=== PATIENT | male | born 1950 | race Caucasian/White ===

== ENCOUNTER 2024-10-15 13:40 | Inpatient (IN) | payer MEDICARE, SELFPAY ==
[2024-10-15] VITALS (11 sets, daily range): BP systolic 137–172; BP diastolic 83–120; PULSE 79–99; RESP 16–22; TEMP 36.4–37; O2SAT 96–100; BMI 23.8; BMI 21.6
--- NOTE | 2024-10-15 13:45 | CT_ITS ---
STUDY: CT HEAD STROKE PROTOCOL W/O CONTRAST INJECTION REASON FOR EXAM: Male, 74 years old. Neuro deficit, acute, stroke suspected RADIATION DOSAGE (If Supplied By Facility): CTDIvol = ( 44.99 ) mGy, DLP = ( 779.24 ) mGycm TECHNIQUE: Transaxial CT imaging of the brain was performed without administration of intravenous contrast material. Individualized dose optimization techniques were used for this CT. COMPARISON: No relevant priors. FINDINGS: Normal soft tissue structures. Normal calvarium. There is mild cerebral atrophy with widening of the extra-axial spaces and ventricular dilatation. There are areas of decreased attenuation within the white matter tracts of the supratentorial brain, consistent with microvascular disease changes. There are small punctate calcifications of the basal ganglia which are seen in the aging brain as a normal variant. Normal brainstem. There is mild cerebellar atrophy. There is no intracranial hemorrhage. There are no findings of an acute ischemic infarction. Opacification of the right maxillary sinus. Partial opacification of the right ethmoid sinus and right frontal. Minimal mucosal thickening along the posterior aspect of the sphenoid sinus. ASPECT score: 10 CT/STROKE Brain/Head without Cont IMPRESSION: Chronic involutional changes of the brain. Sinusitis. N.B. : The above Results were Read Back by Nixon Morelos MD to Dr Kevin DO, and understanding confirmed on 10/15/2024 13:57:51 (ET). Electronically Signed: Nixon Morelos MD at 13:59 EST ,
--- NOTE | 2024-10-15 13:45 | CT_ITS ---
STUDY: CTA HEAD AND NECK WITH CONTRAST REASON FOR EXAM: Male, 74 years old. Neuro deficit, acute, stroke suspected RADIATION DOSAGE (If Supplied By Facility): CTDIvol = ( 27.49 ) mGy, DLP = ( 585.86 ) mGycm TECHNIQUE: CT angiography was performed with a multi-detector CT scanner. Data acquisition was obtained from the skull base through the vertex following intravenous administration of IV 100mL [id number]-[id number]. MIP images were reconstructed from the axial data set. Post-processing of the angiographic images was performed, with multiplanar reformation and 3D reconstruction. Individualized dose optimization techniques were used for this CT. COMPARISON: No relevant priors. FINDINGS: Normal bilateral petrous carotid arteries. There is calcified plaque formation of the right cavernous carotid artery, without a cross-sectional luminal stenosis. There is calcified plaque formation of the left cavernous carotid artery, without a cross-sectional luminal stenosis. Normal right A1 segments of the anterior cerebral artery. Normal left A1 segments of the anterior cerebral artery. Normal intact anterior communicating artery (ACOM). Normal bilateral A2 segments of the anterior cerebral arteries. Normal right M1 and M2 segments of the middle cerebral arteries, with a normal M1 bifurcation. Normal left M1 and M2 segments of the middle cerebral arteries, with a normal M1 bifurcation. Normal right posterior communicating artery (PCOM). Normal left posterior communicating artery (PCOM). Normal bilateral vertebral arteries. Normal basilar artery with a normal basilar bifurcation. The visualized bilateral superior cerebellar (SCA) arteries are normal. Normal bilateral P1, P2 and visualized P3 segments of the posterior cerebral arteries. There is no demonstrated aneurysm of the [place]. AORTIC ARCH: There is atherosclerotic calcific plaque formation of the aortic arch and great vessels arising from the aortic arch, without a hemodynamically significant stenosis. There is a normal origin of the brachiocephalic, left common carotid, and left subclavian arteries. RIGHT CAROTID ARTERIES: Normal right common carotid artery (CCA). Normal right common carotid bulb. There is mild atherosclerotic plaque formation of the origin of the right internal carotid artery with less than 50% cross sectional diameter stenosis. Normal visualized cervical portion of the right internal carotid artery. Normal origin of the right external carotid artery (ECA). LEFT CAROTID ARTERIES: Normal left common carotid artery (CCA). Normal left common carotid bulb. There is mild atherosclerotic plaque formation of the origin of the left internal carotid artery with less than 50% cross sectional diameter stenosis. Normal visualized cervical portion of the left internal carotid artery. Normal origin of the left external carotid artery (ECA). VERTEBRAL ARTERIES: Normal bilateral vertebral arteries. CT/STROKE CTA Head AND Neck W/Con IMPRESSION: Atherosclerotic plaque anteriorly in both right and left internal carotid arteries without significant stenosis. N.B. : The above Results were Read Back by Nixon Morelos MD to Dr Kevin DO, and understanding confirmed on 10/15/2024 14:05:33 (ET). Electronically Signed: Nixon Morelos MD at 14:06 EST ,
--- NOTE | 2024-10-15 13:45 | EKG12_ITS ---
Test Reason : STROKE Blood Pressure : */* mmHG Vent. Rate : 84 BPM Atrial Rate : * BPM P-R Int : * ms QRS Dur : 102 ms QT Int : 424 ms P-R-T Axes : * 86 12 degrees QTcB Int : 501 ms Atrial fibrillation Nonspecific ST abnormality Prolonged QT Abnormal ECG Confirmed by JUANI GUERRERO ([id number]), assignment desk editor [place] ([id number]) on 10/17/2024 12:01:18 PM Referred By: Confirmed By: JUANI GUERRERO
[2024-10-15 13:54] LABS: Absolute Lymphocyte Count 1.26 X10^3/uL (0.83-4.51); Absolute Neutrophil Count 4.1 X10^3/uL (2.0-7.7); Basophil# 0.04 X10^3/uL; Basophil% 0.6 % (0-1); Eosinophil# 0.14 X10^3/uL; Eosinophils% 2.1 % (0-5); Hematocrit 47.7 % (40-54); Hemoglobin 16.2 g/dL (13.0-16.5); Lymphocyte # 1.26 X10^3/ul (0.83-4.51); Lymphocyte % 19.2 % (19-41); Mean Corpuscular Hgb 32.2 pg (27.0-32.0); Mean Corpuscular Volume 94.8 fL (80-94); Mean Platelet Vol. 9.8 fl (6.2-12.0); Monocyte# 1.01 X10^3/uL; Monocyte% 15.4 % (0-10); NRBC Flagged by Analyzer 0 % (0-5); Neutrophil % 62.5 % (47-70); Platelet Count 279 K/mm3 (150-450); RBC Distribution Width SD 45.2 fl (35.1-43.9); Red Blood Count 5.03 M/mm3 (4.6-6.2); White Blood Count 6.6 K/mm3 (4.4-11.0)
[2024-10-15 14:15] LABS: International Normalized Ratio 1.8; Prothrombin Time (Protime)PT. 20.7 SECONDS (11.7-14.9)
[2024-10-15 14:16] LABS: Partial Thromboplast Time 31.5 Seconds (24.1-36.2)
[2024-10-15 14:24] LABS: Anion Gap 4 (5-15); BUN 16 mg/dL (7-18); Calcium,Total 9.3 mg/dL (8.5-10.1); Chloride 108 mmol/L (98-107); Creatinine, Serum 0.89 mg/dL (0.70-1.30); EST Glomerular Filtration Rate 88 mL/min (>60); Est Glom Filt Rate - Afr Amer 107 mL/min (>60); Estimated Creatinine Clearance 71.72 ml/min; Glucose 90 mg/dL (74-106); Potassium 4.2 mmol/L (3.5-5.1); Sodium Level 139 mmol/L (136-145); Troponin-I HS 8 pg/mL (3.0-78.0)
--- NOTE | 2024-10-15 14:28 | ED.RN ---
[facility] neurologist states if inr less than 1.7 give tnk. pt. inr 1.8
--- NOTE | 2024-10-15 14:31 | RAD_ITS ---
STUDY: X-RAY CHEST REASON FOR EXAM: Male, 74 years old. Neuro deficit, acute, stroke suspected TECHNIQUE: Single AP portable view of the chest. COMPARISON: None. FINDINGS: EKG electrodes are seen. The lungs are clear and expanded. There is no demonstrated pleural abnormality. Sternal cerclage wires and vascular clips are present from a prior sternotomy and coronary artery bypass graft procedure (CABG). Normal mediastinum and edelmira. There is prominence of the pulmonary hilar arteries without peripheral pulmonary vascular congestion, suggesting pulmonary hypertension. There is atherosclerotic calcification of the aortic arch with tortuosity. There are degenerative changes of the visualized thoracic spine. Normal visualized ribs, clavicles, and shoulders. There is no demonstrated abnormality of the visualized soft tissue structures of the upper abdomen. RAD/Chest 1 View IMPRESSION: Status post CABG. Prominence of the central pulmonary arteries. Electronically Signed: Nixon Morelos MD at 14:49 EST ,
--- NOTE | 2024-10-15 14:31 | ED.VIS.STROK ---
HPI History of Present Illness Chief Complaint: Stroke Alert Informant: patient, family and EMS Narrative Narrative: 74-year-old male history of mechanical falls on anticoagulation Coumadin with atrial fibrillation presenting to the emergency department as a prehospital stroke alert. Patient states he was shopping at the store when he felt something was not quite right. He noted his vision was off and his face did not seem correct. EMS was called who called prehospital stroke alert. Patient denies any arm or leg symptoms. PFSH PFSH Medical History (Updated 10/15/24 @ 15:[address] Osmar Brown DO) Splenic vein thrombosis A-fib Home Medications ?Medication ?Instructions ?Recorded ?Last Taken ?Type amlodipine 5 mg tablet (Norvasc) 5 mg PO DAILY 10/15/24 10/14/24 History ascorbic acid (vitamin C) 500 mg 500 mg PO DAILY 10/15/24 10/15/24 History tablet (Vitamin C) esomeprazole magnesium 20 mg 20 mg PO Q12H 10/15/24 10/15/24 History capsule,delayed release (Nexium) levothyroxine 50 mcg tablet 50 mcg PO DAILY 10/15/24 10/14/24 History (Synthroid) sotalol 240 mg tablet (Betapace) 240 mg PO BID 10/15/24 10/15/24 History warfarin 5 mg tablet 5 mg PO DAILY 10/15/24 10/15/24 History Allergy/AdvReac Type Severity Reaction Status Date / Time No Known Allergies Allergy Verified 10/15/24 14:45 Surgical History (Updated 10/15/24 @ 15:[address] Gloria Mccarthy DO) Status post mitral valve annuloplasty Social History Smoking Status: Never smoker ROS ROS ED Constitutional Constitutional ED: Denies chills, fever(s) or weight loss Eyes Eyes: Reports change in vision and diplopia; Denies blurry vision ENT ENT ED: Denies ear pain, rhinorrhea or sore throat Cardiovascular Cardiovascular: Denies chest pain, orthopnea, palpitations or racing heartbeat Respiratory/Chest Respiratory/Chest: Denies cough, dyspnea or orthopnea Gastrointestinal Gastrointestinal: Denies abdominal pain, diarrhea, nausea or vomiting Genitourinary Genitourinary ED: Denies dysuria, hematuria or urinary frequency Musculoskeletal Musculoskeletal: Denies arthralgias or myalgias Integumentary Denies abscess or rash Neurologic Neurologic: Reports weakness; Denies headache(s) Psychiatric Psychiatric: Denies anxiety, depression, suicidal ideation or suicidal thoughts Endocrine Endocrinology: Denies polydipsia, polyphagia or polyuria Allergic/Immunologic Allergic/Immunologic ED: Denies mouth swelling, tongue swelling or urticaria EXAM Physical Exam Const Vital Signs: 10/15/24 13:41 10/15/24 13:45 10/15/24 13:45 Temperature 97.8 F 97.8 F Temperature Source Temporal Oral Pulse Rate 90 90 Respiratory Rate 18 18 Blood Pressure 172/100 H 172/100 H Blood Pressure Mean 124 124 Pulse Ox 96 96 Oxygen Delivery Method Room Air Room Air Room Air 10/15/24 13:45 10/15/24 14:15 10/15/24 14:30 Temperature 97.8 F 97.8 F 97.8 F Temperature Source Temporal Temporal Temporal Pulse Rate 87 88 84 Respiratory Rate 22 H 18 18 Blood Pressure 163/86 H 149/89 H 155/98 H Blood Pressure Mean 111 109 117 Pulse Ox 99 98 99 Oxygen Delivery Method Room Air Room Air Room Air 10/15/24 14:41 10/15/24 15:02 10/15/24 15:04 Temperature 97.6 F L 98.6 F 97.8 F Temperature Source Temporal Oral Pulse Rate 97 88 99 Respiratory Rate 16 18 16 Blood Pressure 137/111 H 137/111 H Blood Pressure Mean 119 119 Pulse Ox 96 97 98 Oxygen Delivery Method Room Air Room Air Positive well nourished and well developed General Appearance ED: well developed and NAD HEENT Reports normocephalic, head/scalp atraumatic and moist mucous membranes Eyes PERRL Eyes Narrative: Patient's right eye is unable to look left. Patient continuously closes his left eye to improve his vision. Neck no lymphadenopathy, supple and no JVD Resp normal respiratory effort and clear to auscultation bilaterally Cardio regular rate, regular rhythm and no murmurs GI normal to inspection, nondistended, normoactive bowel sounds and non-tender Palpation: soft Back/Spine no CVA tenderness and normal ROM Extremity normal to inspection General Extremety ED: Negative for edema General Extremity: Negative for edema Neuro oriented x3 Neuro Narrative: Patient with facial droop noted. The patient denies any loss of vision in the eye. He keeps closing his left eye to improve his vision. He does have some [id number] difficulty but felt more related to his visual changes that corrects when he keeps his left eye closed. [place] Coma Scale: document GCS findings Spontaneous Obeys Commands Oriented 15 Sensorium / Orientation: alert Speech: Negative for speech normal Motor Exam: strength 5/5 throughout Psych mental status grossly normal Mood & Affect: Negative for depressed or tearful Skin no rashes or lesions noted and no wounds NIHSS NIHSS Initial: 1a Level of Consciousness: 0 1b LOC Questions (Score 2 if aphasic/stupor): 0 1c LOC Commands (Only score 1st attempt): 0 2 Best Gaze (If aphasic, use reflexive mvmts.): 2 3 Visual: 0 4 Facial Palsy: 2 5 Motor Arm Right (UN = amputation/fusion): 0 5 Motor Arm Left: 0 6 Motor Leg Right: 0 6 Motor Leg Left: 0 7 Limb ataxia (Only + if out of proportion): 0 8 Sensory (Aphasia/stupor=0 or 1, coma=2): 0 9 Best Language: 0 10 Dysarthria (mute, coma=2, intubated=UN): 1 11 Extinction and Inattention (only scored if +): 0 Total Score: 5 MDM MDM MDM Narrative Medical decision making narrative: Prehospital stroke alert. Patient was taken to CT scanner on the EMS cot. Initial head CT shows no bleed or dense sign. CTA does not demonstrate an LVO or distal LVO. Patient was assessed by [facility] neurology. His INR is 1.8. Recommendation would be for tPA if INR 1.7 and below. I spoke with neurologist directly regarding anticoagulation using heparin. They recommend heparinizing him without bolus and a repeat head CT in 6 hours. My independent interpretation of the chest x-ray is no acute process.White count 6.6 hemoglobin 16.2 platelet count 279 INR again 1.8 PTT 31.5. Troponin is 8 creatinine 0.89 BUN is 16. Plan is admission into hospital. Family arrived and the patient had not a mechanical mitral valve repair but annuloplasty. Therefore heparin drip was stopped. He is still not a tPA candidate given his INR of 1.8. Nursing notes that the speech is improved but the eye gaze has not. History & Record Review Discussion w/independent historian: EMS personnel, Patient and Family Lab Data Attestation: I reviewed the patient's lab results. Labs: Laboratory Results - last 24 hr 10/15/24 13:43 WBC 6.6 RBC 5.03 Hgb 16.2 Hct 47.7 MCV 94.8 H MCH 32.2 H MCHC 34.0 RDW Std Deviation 45.2 H RDW Coeff of Jerry 13.0 Plt Count 279 MPV 9.8 Immature Gran % (Auto) 0.200 Neut % (Auto) 62.5 Lymph % (Auto) 19.2 [place] % (Auto) 15.4 H Eos % (Auto) 2.1 Baso % (Auto) 0.6 Absolute Neuts (auto) 4.1 Absolute Lymphs (auto) 1.26 Nucleated RBC % 0 PT 20.7 H INR 1.8 APTT 31.5 Sodium 139 Potassium 4.2 Chloride 108 H Carbon Dioxide 28.0 Anion Gap 4 L BUN 16 Creatinine 0.89 Estim Creat Clear Calc 71.72 Est GFR (MDRD) Af Amer 107 Est GFR (MDRD) Non-Af 88 BUN/Creatinine Ratio 18.0 Glucose 90 Calcium 9.3 Troponin I High Sens 8 Radiography Diagnostic Testing: Clinical Impression(s) from Imaging Studies Brain CT 10/15/24 13:45 IMPRESSION: Chronic involutional changes of the brain. Sinusitis. N.B. : The above Results were Read Back by Nixon Morelos MD to Dr Kevin DO, and understanding confirmed on 10/15/2024 13:57:51 (ET). Electronically Signed: Nixon Morelos MD at 13:59 EST , ADDENDUM: 10/15/24 1405 IMPRESSION: Chronic involutional changes of the brain. Sinusitis. N.B. : The above Results were Read Back by Nixon Morelos MD to Dr Kevin DO, and understanding confirmed on 10/15/2024 13:57:51 (ET). Electronically Signed: Nixon Morelos MD at 13:59 EST , Head/Neck CTA 10/15/24 13:45 IMPRESSION: Atherosclerotic plaque anteriorly in both right and left internal carotid arteries without significant stenosis. N.B. : The above Results were Read Back by Nixon Morelos MD to Dr Kevin DO, and understanding confirmed on 10/15/2024 14:05:33 (ET). Electronically Signed: Nixon Morelos MD at 14:06 EST , ADDENDUM: 10/15/24 1413 IMPRESSION: Atherosclerotic plaque anteriorly in both right and left internal carotid arteries without significant stenosis. N.B. : The above Results were Read Back by Nixon Morelos MD to Dr Kevin DO, and understanding confirmed on 10/15/2024 14:05:33 (ET). Electronically Signed: Nixon Morelos MD at 14:06 EST , Chest X-Ray 10/15/24 14:31 IMPRESSION: Status post CABG. Prominence of the central pulmonary arteries. Electronically Signed: Nixon Morelos MD at 14:49 EST , EKG Initial EKG: Attestation: I personally reviewed and interpreted this EKG as follows: Comments: Atrial fibrillation with a ventricular rate of 84 bpm Management Discussion w/another healthcare provider: Hospitalist (Dr Mccarthy), [employer] ([facility]) and Radiologist (Dr. Morelos) Discharge Plan Dx/Rx/DC Orders Clinical Impression: Subtherapeutic international normalized ratio (INR), Acute stroke due to ischemia, Atrial fibrillation Disposition Disposition: Acute Care Hospital [facility]
--- NOTE | 2024-10-15 14:41 | HP.PCM.HOS_ITS ---
HPI - General General Date of Admission: 10/15/24 Date of Service: 10/15/24 Chief Complaint: Right-sided weakness/aphasia/slurred speech HPI Narrative ARIN HENRY, is a 74 M who presented to the emergency at [facility] on 10/15/2024 due to acute onset of right-sided weakness, aphasia, and slurred speech. Patient states he was his normal self up until about 1245 today at which time he experienced the above symptoms and came emergently to the hospital. Stroke team was called. Patient has a history mitral valve annuloplasty with annular ring placement but no mechanical mitral valve placement and is on anticoagulation with Coumadin due to history of the splenic vein thrombus and atrial fibrillation. His INR at the time of presentation was 1.8. NIH on presentation was 5. Case was discussed with [facility] neurology and they indicated that we should give tenecteplase if his INR was 1.7 or less. Unfortunately, his INR was 1.8 so therefore tenecteplase was held and request for admission was made. Initially we thought he was on Coumadin for mechanical mitral valve and the plan was going to be for heparin drip however in light of this not actually be a mechanical mitral valve the heparin was held and we will hold his Coumadin to avoid post stroke hemorrhagic transformation. Patient and family both indicate that his symptoms are better at this time than when he presented to the emergency department. They state his speech is still not correct. Patient keeps his left eye closed stating that he is diplopia. On exam he has the inability to abduct his right eye. Vital signs on presentation showed temperature of 97.8, heart rate 90, respiratory rate is 18, blood pressure 172/100 with a pulse ox of 96% on room air. CBC is overtly unremarkable. INR is 1.8. Chemistry panel is unremarkable. Troponin is 8. Hemoglobin A1c is 5.5. CT of the brain shows chronic involutional changes with opacification of the right maxillary sinus and partial opacification of the right ethmoid sinus and right frontal sinus which appear to be chronic. CTA of the head and neck showed atherosclerotic anteriorly both in the left and right internal carotid arteries without significant stenosis. Estimated stenosis is less than 50% on bilateral carotid arteries. [facility] Medical History (Updated 10/15/24 @ 16:[address] Gloria Mccarthy DO) GERD (gastroesophageal reflux disease) Hypothyroidism Essential hypertension Mitral valve insufficiency Splenic vein thrombosis A-fib Home Medications ?Medication ?Instructions ?Recorded ?Last Taken ?Type amlodipine 5 mg tablet (Norvasc) 5 mg PO DAILY 10/15/24 10/14/24 History ascorbic acid (vitamin C) 500 mg 500 mg PO DAILY 10/15/24 10/15/24 History tablet (Vitamin C) esomeprazole magnesium 20 mg 20 mg PO Q12H 10/15/24 10/15/24 History capsule,delayed release (Nexium) levothyroxine 50 mcg tablet 50 mcg PO DAILY thyroid 10/15/24 10/15/24 History (Synthroid) sotalol 240 mg tablet (Betapace) 240 mg PO BID 10/15/24 10/15/24 History warfarin 5 mg tablet 5 mg PO DAILY blood thinner 10/15/24 10/14/24 History Allergy/AdvReac Type Severity Reaction Status Date / Time No Known Allergies Allergy Verified 10/15/24 14:45 Family History (Updated 10/15/24 @ 16:[address] Gloria Mccarthy DO) Other Hypertension Surgical History Status post mitral valve annuloplasty Social History (Updated 10/15/24 @ 16:[address] Gloria cMcarthy DO) household members: spouse housing: house Smoking Status: Never smoker alcohol intake: never substance use type: does not use ROS Constitutional Constitutional: Reports weakness; Denies anorexia, change in weight, chills, fatigue, fever(s), malaise, night sweats or other Eyes Eyes: Reports change in vision; Denies blurry vision, change in eye color, discharge from eye(s), double vision, erythema, eye pain, loss of vision or other ENT HEENT: Reports abnormal hearing; Denies dysphagia, ear pain, epistaxis, headache(s), hearing loss, nasal congestion, nasal discharge, post nasal drip, sinus pressure, sore throat or other Cardiovascular Cardiovascular: Denies chest pain, claudication, dyspnea on exertion, edema, lightheadedness, orthopnea, palpitations, paroxysmal nocturnal dyspnea, rapid heart rate, syncope or other Respiratory/Chest Respiratory/Chest: Denies cough, dyspnea, excessive phlegm production, hemoptysis, productive cough, shortness of breath at rest, shortness of breath with exertion, wheezing or other Gastrointestinal Gastrointestinal: Denies abdominal pain, coffee ground emesis, constipation, diarrhea, dyspepsia, hematemesis, hematochezia, loose stools, melena, nausea, vomiting or other Genitourinary Genitourinary: Denies burning urination, difficulty urinating, dysuria, hematuria, nocturia, urinary frequency, urinary hesitancy, urinary incontinence, urinary urgency or other Musculoskeletal Musculoskeletal: Denies arthralgias, back pain, joint pain, joint stiffness, joint swelling, myalgias, neck pain or other Neurologic Neurologic: Reports abnormal speech, focal weakness and other Details: Diplopia Psychiatric Psychiatric: Denies anxiety, depression, homicidal ideation, suicidal ideation or other Endocrine Endocrinology: Denies change in body appearance, cold intolerance, excessive sweating, heat intolerance, polydipsia, polyuria or other Hematologic/Lymphatic Hematologic/Lymphatic: Denies anemia, easy bleeding, easy bruising, lymphadenopathy or other Allergic/Immunologic Allergic/Immunologic: Denies rhinitis, hives, eczemia, asthma or other Vital Signs Vital Signs Vital Signs: 10/15/24 13:41 10/15/24 13:45 10/15/24 13:45 Temperature 97.8 F 97.8 F Temperature Source Temporal Oral Pulse Rate 90 90 Respiratory Rate 18 18 Blood Pressure 172/100 H 172/100 H Blood Pressure Mean 124 124 Pulse Ox 96 96 Oxygen Delivery Method Room Air Room Air Room Air 10/15/24 13:45 10/15/24 14:15 10/15/24 14:30 Temperature 97.8 F 97.8 F 97.8 F Temperature Source Temporal Temporal Temporal Pulse Rate 87 88 84 Respiratory Rate 22 H 18 18 Blood Pressure 163/86 H 149/89 H 155/98 H Blood Pressure Mean 111 109 117 Pulse Ox 99 98 99 Oxygen Delivery Method Room Air Room Air Room Air Weight Weight: 73 kg Body Mass Index (BMI) 23.8 Physical Exam Const alert, oriented x3, no apparent distress and well nourished Constitutional Narrative: Very pleasant, older, white male, sitting up in a chair at the bedside, appears comfortable, nontoxic, and son at bedside General Appearance: cooperative HEENT normocephalic, head/scalp atraumatic and moist oral mucous membranes; Negative for hearing grossly normal bilaterally HEENT Narrative: Moderate hearing loss Eyes PERRL and conjunctivae normal; Negative for EOMs intact bilaterally Eyes Narrative: Right eye with no abduction Neck no lymphadenopathy and supple Neck Narrative: Trachea midline, no carotid bruits bilaterally, no thyroid enlargement noted Resp normal respiratory effort, no retractions, no use of accessory muscles and clear to auscultation bilaterally Auscultation: Negative for rales, rhonchi or wheezes Cardio regular rate, S1 normal heart sound, S2 normal heart sound, no murmurs, no rub, no gallops and no clicks; Negative for regular rhythm Cardio Narrative: Irregularly irregular rhythm GI normal to inspection, nondistended, normoactive bowel sounds, soft to palpation and non-tender Extremity no clubbing, cyanosis or edema Extremity Narrative: 2+ radial and pedal pulses Neuro oriented x3, No CN's II-XII intact bilaterally, moves all extremities and no focal motor deficits Neuro Narrative: Patient with left facial droop, abnormal cranial nerve III on the right eye as he has inability to cross midline with medial rectus, all other cranial nerves appear to be within normal limits, patient with dysarthria Speech: Negative for speech normal Psych affect normal Psych Narrative: Very pleasant, appears comfortable Results Lab / Micro Data 10/15/24 13:43 10/15/24 13:43 Labs: Laboratory Results - last 24 hr 10/15/24 13:43: WBC 6.6, RBC 5.03, Hgb 16.2, Hct 47.7, MCV 94.8 H, MCH 32.2 H, MCHC 34.0, RDW Std Deviation 45.2 H, RDW Coeff of Jerry 13.0, Plt Count 279, MPV 9.8, Immature Gran % (Auto) 0.200, Neut % (Auto) 62.5, Lymph % (Auto) 19.2, [place] % (Auto) 15.4 H, Eos % (Auto) 2.1, Baso % (Auto) 0.6, Absolute Neuts (auto) 4.1, Absolute Lymphs (auto) 1.26, Nucleated RBC % 0, PT 20.7 H, INR 1.8, APTT 31.5, Sodium 139, Potassium 4.2, Chloride 108 H, Carbon Dioxide 28.0, Anion Gap 4 L, BUN 16, Creatinine 0.89, Estim Creat Clear Calc 71.72, Est GFR (MDRD) Af Amer 107, Est GFR (MDRD) Non-Af 88, BUN/Creatinine Ratio 18.0, Glucose 90, Calcium 9.3, Troponin I High Sens 8 Imaging Radiology Impression Brain CT 10/15/24 13:45 IMPRESSION: Chronic involutional changes of the brain. Sinusitis. N.B. : The above Results were Read Back by Nixon Morelos MD to Dr Kevin DO, and understanding confirmed on 10/15/2024 13:57:51 (ET). Electronically Signed: Nixon Morelos MD at 13:59 EST , ADDENDUM: 10/15/24 1405 IMPRESSION: Chronic involutional changes of the brain. Sinusitis. N.B. : The above Results were Read Back by Nixon Morelos MD to Dr Kevin DO, and understanding confirmed on 10/15/2024 13:57:51 (ET). Electronically Signed: Nixon Morelos MD at 13:59 EST , Head/Neck CTA 10/15/24 13:45 IMPRESSION: Atherosclerotic plaque anteriorly in both right and left internal carotid arteries without significant stenosis. N.B. : The above Results were Read Back by Nixon Morelos MD to Dr Kevin DO, and understanding confirmed on 10/15/2024 14:05:33 (ET). Electronically Signed: Nixon Morelos MD at 14:06 EST , ADDENDUM: 10/15/24 1413 IMPRESSION: Atherosclerotic plaque anteriorly in both right and left internal carotid arteries without significant stenosis. N.B. : The above Results were Read Back by Nixon Morelos MD to Dr North English , DO, and understanding confirmed on 10/15/2024 14:05:33 (ET). Electronically Signed: Nixon Morelos MD at 14:06 EST , Assessment & Plan Assessment/Plan (1) Right sided weakness: (2) Slurred speech: (3) Subtherapeutic international normalized ratio (INR): (4) Dysarthria: PLAN: Plan Right-sided weakness/dysarthria/slurred speech -Highly suspect cardioembolic stroke with subtherapeutic INR and persistent atrial fibrillation -Will hold anticoagulation for now to avoid hemorrhagic transformation -Initially was thought patient has a mechanical mitral valve which she does not--> history of annuloplasty with annular ring -Takes Coumadin at baseline for atrial fibrillation and history of splenic vein thrombus -Check hemoglobin A1c -Check lipid panel -Start high intensity dose statin -Hold home antihypertensive regimen for now and allow for permissive hypertension to facilitate improved perfusion -Ultimately goal blood pressure be less than 130/80 -Start aspirin 81 mg daily -Check MRI -Check echocardiogram -Consult neurology Subtherapeutic INR -INR on presentation was 1.8 with goal and INR 2-3 -Coumadin currently on hold due to above suspected stroke -If MRI negative restart Coumadin -Repeat INR when Coumadin reinitiated Persistent atrial fibrillation -EKG shows atrial fibrillation with good rate control -Patient is on sotalol at baseline--> continue -QTc is mildly prolonged at 502 -Hold Coumadin for now to avoid hemorrhagic transformation with stroke -Suspect current stroke is cardioembolic with subtherapeutic INR on presentation Hypothyroidism -Continue home levothyroxine GERD -Continue home PPI Essential hypertension -Continue home amlodipine History of splenic thrombus -Coumadin on hold due to the above -Restart when appropriate History of mitral valve disease -Previous annuloplasty with annular ring -No mechanical mitral valve present -Echocardiogram is pending -Continue outpatient follow-up DVT prophylaxis -Subcu Lovenox daily 40 mg -Continue Lovenox until INR is therapeutic again at 2-3 or patient is able to be discharged CODE STATUS -Full code as verified on admission Charges/Coding Visit Charges Inpatient E&M: 77971 Init Hosp L2
--- NOTE | 2024-10-15 15:16 | ECHOD_ITS ---
Reason For Study: TIA/STROKE Procedure This was a 2D Doppler, Color Flow transthoracic echocardiogram. Exam performed portable in patient room. Left Ventricle Normal LV size. Moderate concentric left ventricular hypertrophy. The estimated ejection fraction is 55 %. Unable to assess diastolic dysfunction due to arrhythmia. Right Ventricle Normal RV size. Normal systolic function. Atria The left atrium is moderately enlarged. The right atrium is moderately enlarged. Bubble contrast study negative for right to left interatrial shunt. Mitral Valve Severe mitral annular calcification. The mitral valve chordae are thickened and/or calcified. Mild diffuse mitral valve calcification. Mild mitral valve stenosis. Mean transmitral valve gradient 5.6 mmHg. Mild (1+) mitral valve insufficiency. Tricuspid Valve Normal tricuspid valve. Mild (1+) tricuspid valve insufficiency. Unable to estimate RV systolic pressure due to insufficient tricuspid regurgitant envelope. Aortic Valve Trisinus/trileaflet aortic valve. Mild focal aortic valve calcification. There is no aortic stenosis. Mild (1+) aortic valve insufficiency. Pulmonic Valve Normal pulmonic valve. Great Vessels Normal aortic root. Pericardium/Pleural No pericardial effusion. Medication Performed a rapid injection of agitated mix of 9 cc saline and 1cc air to assess for atrial septal defect. MMode/2D Measurements & Calculations LVIDd: 4.0 cm IVSd: 1.5 cm LAV(MOD-bp): 107.9 ml LVIDs: 3.2 cm LVPWd: 1.2 cm RVDd: 3.8 cm FS: 20.3 % LAV(MOD-bp) Indexed: 57.3 ml/m2 LAV(MOD-sp2): 125.8 ml LAV(MOD-sp4): 95.2 ml SV(MOD-sp4): 11.9 ml SV(sp4-el): 14.7 ml LVAd ap4: 17.3 cm2 LVLd ap4: 7.9 cm SI(MOD-sp4): 6.3 ml/m2 EDV(MOD-sp4): 31.9 ml EDV(sp4-el): 32.1 ml LVAs ap4: 12.4 cm2 LVLs ap4: 7.5 cm ESV(MOD-sp4): 20.1 ml ESV(sp4-el): 17.4 ml EF(MOD-sp4): 37.2 % EF(sp4-el): 45.8 % LA A4 area: 29.3 cm2 RA A4 area: 33.1 cm2 Doppler Measurements & Calculations MV E max venkata: 173.6 cm/sec Lat Peak E' Venkata: 6.7 cm/sec Med Peak E' Venkata: 3.2 cm/sec E/E' lat: 25.9 E/E' med: 54.2 MV V2 max: 178.2 cm/sec MV P1/2t max venkata: 175.0 cm/sec Ao V2 max: 129.7 cm/sec MV max P.7 mmHg MV P1/2t: 197.7 msec Ao max P.9 mmHg MV V2 mean: 110.7 cm/sec MV dec slope: 259.3 cm/sec2 Ao V2 mean: 66.5 cm/sec MV mean P.6 mmHg MVA(P1/2t): 1.1 cm2 Ao mean P.2 mmHg MV V2 VTI: 64.0 cm Ao V2 VTI: 18.3 cm AV (velocity ratio): 0.71 LV V1 max: 70.8 cm/sec PA V2 max: 75.2 cm/sec LV V1 max P.0 mmHg LV V1 mean P.1 mmHg LV V1 mean: 49.3 cm/sec LV V1 VTI: 13.1 cm ECHO/Echo Complete Interpretation Summary The estimated ejection fraction is 55 %. Unable to assess diastolic dysfunction due to arrhythmia. The left atrium is moderately enlarged. The right atrium is moderately enlarged. Severe mitral annular calcification. Mild mitral valve stenosis. Mild (1+) mitral valve insufficiency. Mild (1+) tricuspid valve insufficiency. Mild focal aortic valve calcification. Mild (1+) aortic valve insufficiency. Bubble contrast study negative for right to left interatrial shunt. Ordering Physician: Gloria Mccarthy Referring Physician: RILEY SWARTZ Performed By: Krupa Marquis and Student
--- NOTE | 2024-10-15 15:16 | MRI_ITS ---
STUDY: MRI BRAIN WITHOUT CONTRAST REASON FOR EXAM: Male, 74 years old. Stroke TECHNIQUE: Standardized multiplanar fat and water weighted pulse sequences were obtained. COMPARISON: CT. FINDINGS: There is mild cerebral atrophy with widening of the extra-axial spaces and ventricular dilatation. There are a limited number of small white matter hyperintensities, distributed throughout the deep white matter tracts of the cerebral hemispheres, consistent with mild chronic white matter ischemic changes. There is no evidence for recent intracranial ischemia or other cause of cytotoxic edema on diffusion weighted imaging (DWI). Normal T2* images of the brain without demonstrated susceptibility artifact. There is no demonstrated hemosiderin stain. Normal bilateral basal ganglia. Normal thalami. There is no extra-axial fluid accumulation. Normal flow voids within the major intracranial circulation suggesting patency by spin echo criteria. Normal sella turcica, pituitary gland, infundibular stalk, optic chiasm and hypothalamus. Normal tectal plate and pineal gland. Normal midbrain, rosie and medulla. There is left cerebellar volume loss and encephalomalacia. Normal basal cisterns. Normal bilateral temporal bones. Normal bilateral internal auditory canals. No demonstrated orbital abnormality, within the constraints of a routine brain study. There is moderate mucosal thickening of the visualized paranasal sinuses. Normal calvarium and skull base. Normal visualized soft tissue structures. Normal visualized upper cervical spine. MRI/Brain without Contrast IMPRESSION: Involutional changes of the brain, as described above. Electronically Signed: Boom Frias MD at 18:19 EST ,
[2024-10-15 16:18] LABS: Hemoglobin A1c 5.5 % (3.8-5.6)
[2024-10-15] MEDS: Aspirin 81 MG TAB.CHEW PO (16:27)
[2024-10-15] MEDS: Ensure Plus High Protein 120 ML LIQUID PO ×2 (16:27→22:14)
[2024-10-15] MEDS: Sotalol Hydrochloride 80 MG Tablet 240 MG PO (22:11)
[2024-10-15] MEDS: Pantoprazole Sodium 20 MG Tablet PO (22:11)
[2024-10-15] MEDS: Atorvastatin Calcium 80 MG Tablet PO (22:12)
[2024-10-15] MEDS: 0.9% Saline Lock 10 ML Syringe IV (22:14)
[2024-10-16 01:52] VITALS: BP 159/91; PULSE 74; RESP 16; TEMP 36.6; O2SAT 98
[2024-10-16 04:33] VITALS: BMI 21.6
[2024-10-16] MEDS: Levothyroxine 50 MCG Tablet PO (05:51)
[2024-10-16] MEDS: Acetaminophen 325 MG Tablet 650 MG PO (05:51)
[2024-10-16 05:55] VITALS: BP 154/98; PULSE 81; RESP 18; TEMP 36.6; O2SAT 98
[2024-10-16 06:16] LABS: Absolute Lymphocyte Count 1.05 X10^3/uL (0.83-4.51); Absolute Neutrophil Count 5.5 X10^3/uL (2.0-7.7); Basophil# 0.05 X10^3/uL; Basophil% 0.6 % (0-1); Eosinophil# 0.13 X10^3/uL; Eosinophils% 1.7 % (0-5); Hematocrit 46.3 % (40-54); Lymphocyte # 1.05 X10^3/ul (0.83-4.51); Lymphocyte % 13.4 % (19-41); Mean Corp Hgb Conc 34.6 g/dL (32-36); Mean Corpuscular Hgb 32.1 pg (27.0-32.0); Mean Corpuscular Volume 92.8 fL (80-94); Mean Platelet Vol. 9.6 fl (6.2-12.0); Monocyte# 1.11 X10^3/uL; Monocyte% 14.1 % (0-10); NRBC Flagged by Analyzer 0 % (0-5); Neutrophil # 5.49 X10^3/uL (2.7-7.7); Neutrophil % 69.9 % (47-70); Platelet Count 249 K/mm3 (150-450); RBC Distribution Width CV 12.7 % (11.6-14.6); RBC Distribution Width SD 43.4 fl (35.1-43.9); Red Blood Count 4.99 M/mm3 (4.6-6.2); White Blood Count 7.9 K/mm3 (4.4-11.0)
[2024-10-16 06:53] LABS: ALB/GLOB Ratio 1.1 RATIO (0.9-2.4); AST(SGOT) 22 U/L (15-37); Alanine Aminotransfer ALT/SGPT 19 U/L (16-61); Albumin, Serum 3.9 g/dL (3.2-5.0); Alkaline Phosphatase 83 U/L (45-117); Anion Gap 8 (5-15); BUN 12 mg/dL (7-18); BUN/Creat Ratio 16.8 RATIO (10-20); Calcium,Total 9.5 mg/dL (8.5-10.1); Chloride 107 mmol/L (98-107); Cholesterol 188 mg/dL (200); Creatinine, Serum 0.71 mg/dL (0.70-1.30); EST Glomerular Filtration Rate 114 mL/min (>60); Est Glom Filt Rate - Afr Amer 138 mL/min (>60); Estimated Creatinine Clearance 73.91 ml/min; Globulin 3.7 g/dL (2.2-4.2); Glucose 111 mg/dL (74-106); High Density Lipoprotein 54 mg/dL; Magnesium 2.1 mg/dL (1.6-2.6); Phosphorus 3.1 mg/dL (2.5-4.9); Potassium 3.9 mmol/L (3.5-5.1); Protein, Total 7.6 g/dL (6.4-8.2); Sodium Level 139 mmol/L (136-145); Triglycerides 120 mg/dL; Very Low Density Lipoprotein 24 mg/dL (5-40)
[2024-10-16 07:50] VITALS: O2SAT 96
--- NOTE | 2024-10-16 08:01 | PN.HOSP_ITS ---
Reason for Visit Reason for Visit: Diagnoses Dysarthria and anarthria (10/15/24) Slurred speech (10/15/24) Weakness (10/15/24) Abnormal coagulation profile (10/15/24) Subjective Subjective Still with diplopia and left facial droop and slurred speech. Objective Data Objective Data Vital Signs: Vital Signs Temp Pulse Resp BP Pulse Ox O2 Del Method 36.6 C 81 18 154/98 H 98 Room Air 10/16/24 05:55 10/16/24 05:55 10/16/24 05:55 10/16/24 05:55 10/16/24 05:55 10/16/24 05:55 Oxygen Delivery Method Room Air Weight: 65.5 kg Body Mass Index (BMI) 21.6 Intake & Output: Intake and Output for Last 24 Hours 10/14/24 10/15/24 10/16/24 23:59 23:59 23:59 Intake Total 240 / 480 390 / 390 Output Total 350 / 1000 1250 / 1250 Balance -110 / -520 -860 / -860 Lab / Micro Data 10/16/24 05:51 10/16/24 05:51 Labs: Laboratory Results - last 24 hr 10/15/24 13:43: WBC 6.6, RBC 5.03, Hgb 16.2, Hct 47.7, MCV 94.8 H, MCH 32.2 H, MCHC 34.0, RDW Std Deviation 45.2 H, RDW Coeff of Jerry 13.0, Plt Count 279, MPV 9.8, Immature Gran % (Auto) 0.200, Neut % (Auto) 62.5, Lymph % (Auto) 19.2, [place] % (Auto) 15.4 H, Eos % (Auto) 2.1, Baso % (Auto) 0.6, Absolute Neuts (auto) 4.1, Absolute Lymphs (auto) 1.26, Nucleated RBC % 0, PT 20.7 H, INR 1.8, APTT 31.5, Sodium 139, Potassium 4.2, Chloride 108 H, Carbon Dioxide 28.0, Anion Gap 4 L, BUN 16, Creatinine 0.89, Estim Creat Clear Calc 71.72, Est GFR (MDRD) Af Amer 107, Est GFR (MDRD) Non-Af 88, BUN/Creatinine Ratio 18.0, Glucose 90, Hemoglobin A1c 5.5, Calcium 9.3, Troponin I High Sens 8 10/16/24 05:51: WBC 7.9, RBC 4.99, Hgb 16.0, Hct 46.3, MCV 92.8, MCH 32.1 H, MCHC 34.6, RDW Std Deviation 43.4, RDW Coeff of Jerry 12.7, Plt Count 249, MPV 9.6, Immature Gran % (Auto) 0.300, Neut % (Auto) 69.9, Lymph % (Auto) 13.4 L, M david % (Auto) 14.1 H, Eos % (Auto) 1.7, Baso % (Auto) 0.6, Absolute Neuts (auto) 5.5, Absolute Lymphs (auto) 1.05, Nucleated RBC % 0, Sodium 139, Potassium 3.9, Chloride 107, Carbon Dioxide 25.0, Anion Gap 8, BUN 12, Creatinine 0.71, Estim Creat Clear Calc 73.91, Est GFR (MDRD) Af Amer 138, Est GFR (MDRD) Non-Af 114, BUN/Creatinine Ratio 16.8, Glucose 111 H, Calcium 9.5, Phosphorus 3.1, Magnesium 2.1, Total Bilirubin 0.80, AST 22, ALT 19, Alkaline Phosphatase 83, Total Protein 7.6, Albumin 3.9, Globulin 3.7, Albumin/Globulin Ratio 1.1, Triglycerides 120, Cholesterol 188, LDL Cholesterol 110, VLDL Cholesterol 24, HDL Cholesterol 54 Radiography Diagnostic Testing: Radiology Impression Brain CT 10/15/24 13:45 IMPRESSION: Chronic involutional changes of the brain. Sinusitis. N.B. : The above Results were Read Back by Nixon Morelos MD to Dr Kevin DO, and understanding confirmed on 10/15/2024 13:57:51 (ET). Electronically Signed: Nixon Morelos MD at 13:59 EST , ADDENDUM: 10/15/24 8821 IMPRESSION: Chronic involutional changes of the brain. Sinusitis. N.B. : The above Results were Read Back by Nixon Morelos MD to Dr Kevin DO, and understanding confirmed on 10/15/2024 13:57:51 (ET). Electronically Signed: Nixon Morelos MD at 13:59 EST , Head/Neck CTA 10/15/24 13:45 IMPRESSION: Atherosclerotic plaque anteriorly in both right and left internal carotid arteries without significant stenosis. N.B. : The above Results were Read Back by Nixon Morelos MD to Dr Kevin DO, and understanding confirmed on 10/15/2024 14:05:33 (ET). Electronically Signed: Nixon Morelos MD at 14:06 EST , ADDENDUM: 10/15/24 1413 IMPRESSION: Atherosclerotic plaque anteriorly in both right and left internal carotid arteries without significant stenosis. N.B. : The above Results were Read Back by Nixon Morelos MD to Dr Kevin DO, and understanding confirmed on 10/15/2024 14:05:33 (ET). Electronically Signed: Nixon Morelos MD at 14:06 EST , Chest X-Ray 10/15/24 14:31 IMPRESSION: Status post CABG. Prominence of the central pulmonary arteries. Electronically Signed: Nixon Morelos MD at 14:49 EST , Brain MRI 10/15/24 15:16 IMPRESSION: Involutional changes of the brain, as described above. Electronically Signed: Boom Frias MD at 18:19 EST , Physical Exam Const alert Constitutional Narrative: tearful at times. slurred speech. HEENT HEENT Narrative: limited right movement in any direction. WNL on left. left facial droop. Resp normal respiratory effort, no retractions, no use of accessory muscles and clear to auscultation bilaterally Cardio regular rate, regular rhythm, S1 normal heart sound and S2 normal heart sound GI normal to inspection, nondistended, normoactive bowel sounds, soft to palpation, non-tender and non-distended Extremity normal to inspection and full ROM Neuro oriented x3 Neuro Narrative: ataxia on LUE. Psych Mood & Affect: anxious Assessment & Plan Assessment/Plan (1) Right sided weakness: (2) Slurred speech: (3) Subtherapeutic international normalized ratio (INR): (4) Dysarthria: PLAN: Plan Acute CVA * MRI brain negative. Dr. 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 He recommends restarting anticoagulation. Given pt's history of mitral valvular issues, will resume warfarin. * check echo * PT OT ST * Atorvastatin 80mg/d Chronic conditions: * Persistent atrial fibrillation continue Sotalol * Hypothyroidism-Continue home levothyroxine * GERD-Continue home PPI * Essential hypertension-Continue home amlodipine * History of splenic thrombus-resume warfarin * History of mitral valve disease-Previous annuloplasty with annular ring-No mechanical mitral valve present-Echocardiogram is pending-Continue outpatient follow-up DVT prophylaxis: Subcu Lovenox daily 40 mg Discussed with the patient, his and son. Reviewed MRI report and images with them Explained that clinically, is a CVA. Recommended rehab if deemed appropriate by therapy services. Greater than 55 minutes of which greater than 50% of time was at bedside discussing with the patient, his family, reveiwing imaging and discussing my impression of his clinical situation. Charges/Coding Visit Charges Inpatient E&M: 27040 Subs Hosp L3
[2024-10-16 10:00] VITALS: BP 152/97; PULSE 71; RESP 18; TEMP 36.5; O2SAT 97
[2024-10-16] MEDS: Ensure Plus High Protein 120 ML LIQUID PO ×2 (10:04→13:04)
[2024-10-16] MEDS: Enoxaparin 40 MG/0.4 ML Syringe SC (10:04)
[2024-10-16] MEDS: Pantoprazole Sodium 20 MG Tablet PO (10:04)
[2024-10-16] MEDS: Sotalol Hydrochloride 80 MG Tablet 240 MG PO (10:04)
[2024-10-16] MEDS: Ascorbic Acid 500 MG Tablet PO (10:04)
--- NOTE | 2024-10-16 13:38 | STROKE.CONS ---
Assessment and Plan: Stroke Assessment/Plan ARIN HENRY is a 74 M with a history of AF who presents for evaluation of acute onset diplopia, dysarthria and left sided sensory changes. Neurological examination shows a likely right 3rd nerve palsy Neuroimaging shows no clear acute infarct, but possible subtle DWI changes in rula dorsal midbrain which may represent a small infarct with volume averaging. Differential No historical evidence to support differential alternatives such as myasthenia gravis, or a demylinating process which would be consideratations but are less likely given the very clear history of a sudden onset. - Oral anticoagulation is the most important step for stroke prevention in AF. Optimally would transition to apixaban given his low INR, apixaban's greater average efficacy and its lower risks than warfarin. If possible, would try to check his likely co-pay and, if affordable, transition him. If not, would restart warfarin. - In either case, ok to start oral anticoagulation today as his infarct is quite small. 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 - Discussed the generally positive recovery trajectory after ischemic stroke, but also the uncertainty in that prognosis - Agree with speech, PT and OT evaluations. - No other tests needed for workup given his known AF and clear indication for anticoagulation. 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 HPI Consult Data Date of Consult: 10/16/24 HPI Narrative HPI Narrative: ARIN HENRY, is a 74 M who presents with the sudden onset of dysarthria, diplopia and left sided sensory symptoms. He notes that he was at the store with his and when he left for a couple minutes to pickup an electric scooter for her, he returned with double vision, and severe dysarthria as well as subtle left face and arm sensory symptoms. On presentation to the ED, he has a NIHSS of 1 and an INR of 1.8 and was thus not a candidate for thrombolysis. His left sided symptoms have improved somewhat, but his diplopia and dysarthria have persisted and been relatively unchanged. He has long-standing AF and has been stable on warfarin with INRs mostly between 2-3. [facility] Medical History (Updated 10/15/24 @ 16:[address] Gloria Mccarthy DO) GERD (gastroesophageal reflux disease) Hypothyroidism Essential hypertension Mitral valve insufficiency Splenic vein thrombosis A-fib Home Medications ?Medication ?Instructions ?Recorded ?Last Taken ?Type amlodipine 5 mg tablet (Norvasc) 5 mg PO DAILY 10/15/24 10/14/24 History ascorbic acid (vitamin C) 500 mg 500 mg PO DAILY 10/15/24 10/15/24 History tablet (Vitamin C) esomeprazole magnesium 20 mg 20 mg PO Q12H 10/15/24 10/15/24 History capsule,delayed release (Nexium) levothyroxine 50 mcg tablet 50 mcg PO DAILY thyroid 10/15/24 10/15/24 History (Synthroid) sotalol 240 mg tablet (Betapace) 240 mg PO BID 10/15/24 10/15/24 History warfarin 5 mg tablet 5 mg PO DAILY blood thinner 10/15/24 10/14/24 History Allergy/AdvReac Type Severity Reaction Status Date / Time No Known Allergies Allergy Verified 10/15/24 14:45 Family History (Updated 10/15/24 @ 16:[address] Gloria Mccarthy DO) Other Hypertension Surgical History Status post mitral valve annuloplasty Social History (Updated 10/15/24 @ 16:[address] Gloria Mccarthy DO) household members: spouse housing: house Smoking Status: Never smoker alcohol intake: never substance use type: does not use Vital Signs Vital Signs Vital Signs: 10/15/24 13:41 10/15/24 13:45 10/15/24 13:45 Temperature 97.8 F 97.8 F Temperature Source Temporal Oral Pulse Rate 90 90 Pulse Strength Respiratory Rate 18 18 Respiratory Effort Respiratory Depth Respiratory Pattern Blood Pressure 172/100 H 172/100 H Blood Pressure Mean 124 124 Blood Pressure Source Blood Pressure Position Blood Pressure Location Pulse Ox 96 96 Oxygen Delivery Method Room Air Room Air Room Air 10/15/24 13:45 10/15/24 14:15 10/15/24 14:30 Temperature 97.8 F 97.8 F 97.8 F Temperature Source Temporal Temporal Temporal Pulse Rate 87 88 84 Pulse Strength Respiratory Rate 22 H 18 18 Respiratory Effort Respiratory Depth Respiratory Pattern Blood Pressure 163/86 H 149/89 H 155/98 H Blood Pressure Mean 111 109 117 Blood Pressure Source Blood Pressure Position Blood Pressure Location Pulse Ox 99 98 99 Oxygen Delivery Method Room Air Room Air Room Air 10/15/24 14:41 10/15/24 15:02 10/15/24 15:04 Temperature 97.6 F L 98.6 F 97.8 F Temperature Source Temporal Oral Pulse Rate 97 88 99 Pulse Strength Respiratory Rate 16 18 16 Respiratory Effort Respiratory Depth Respiratory Pattern Blood Pressure 137/111 H 137/111 H Blood Pressure Mean 119 119 Blood Pressure Source Blood Pressure Position Blood Pressure Location Pulse Ox 96 97 98 Oxygen Delivery Method Room Air Room Air 10/15/24 15:52 10/15/24 16:00 10/15/24 16:05 Temperature 98.1 F Temperature Source Oral Pulse Rate 96 Pulse Strength Respiratory Rate 18 Respiratory Effort Respiratory Depth Respiratory Pattern Blood Pressure 168/120 H Blood Pressure Mean 136 Blood Pressure Source Monitor Blood Pressure Position Semi-Fowlers Blood Pressure Location Right Arm Pulse Ox 98 Oxygen Delivery Method Room Air Room Air Room Air 10/15/24 19:50 10/15/24 21:00 10/15/24 21:55 Temperature 98 F 98 F Temperature Source Oral Oral Pulse Rate 82 79 Pulse Strength Respiratory Rate 18 18 Respiratory Effort Respiratory Depth Respiratory Pattern Blood Pressure 149/83 H 148/84 H Blood Pressure Mean 105 105 Blood Pressure Source Monitor Monitor Blood Pressure Position Semi-Fowlers Semi-Fowlers Blood Pressure Location Right Arm Right Arm Pulse Ox 100 96 96 Oxygen Delivery Method Room Air Room Air Room Air 10/15/24 22:00 10/16/24 01:52 10/16/24 02:00 Temperature 97.9 F Temperature Source Oral Pulse Rate 74 Pulse Strength Respiratory Rate 16 Respiratory Effort Normal Normal Respiratory Depth Normal Normal Respiratory Pattern Normal Normal Blood Pressure 159/91 H Blood Pressure Mean 113 Blood Pressure Source Monitor Blood Pressure Position Semi-Fowlers Blood Pressure Location Right Arm Pulse Ox 98 Oxygen Delivery Method Room Air Room Air Room Air 10/16/24 05:55 10/16/24 07:50 10/16/24 08:00 Temperature 97.8 F Temperature Source Oral Pulse Rate 81 Pulse Strength Normal (2+) Respiratory Rate 18 Respiratory Effort Respiratory Depth Respiratory Pattern Blood Pressure 154/98 H Blood Pressure Mean 116 Blood Pressure Source Monitor Blood Pressure Position Semi-Fowlers Blood Pressure Location Right Arm Pulse Ox 98 96 Oxygen Delivery Method Room Air Room Air 10/16/24 10:00 Temperature 97.7 F L Temperature Source Oral Pulse Rate 71 Pulse Strength Respiratory Rate 18 Respiratory Effort Respiratory Depth Respiratory Pattern Blood Pressure 152/97 H Blood Pressure Mean 115 Blood Pressure Source Monitor Blood Pressure Position Semi-Fowlers Blood Pressure Location Right Arm Pulse Ox 97 Oxygen Delivery Method Room Air Weight Weight: 65.5 kg Body Mass Index (BMI) 21.6 NIHSS NIHSS Nursing Documentation NIHSS Nursing Documentation: NIHSS: Ischemic Stroke/TIA Start: 10/15/24 15:40 Text: For PCU Patients: NIH and Neuro Check every 4 Status: Active hours, PRN and with change in RN caregiver. Freq: [id number] Protocol: Activity Type Activity Date Activity User E-sign Co-sign Detail Recorded Client Recorded Date Recorded By Document 10/16/24 10:00 AMG desktop 10/16/24 10:19 AMG 10/16/24 10:00 NIH Stroke Scale [NIHSS] A score of 0 is normal or asymptomatic . Total possible score is 42. Inpatient: RN or Physician to activate a stroke alert for onset of new stroke symptoms or with NIHSS increase >/= 3 points. Following change in neurological status, NIHSS will be performed per physician order or more frequently PRN. -1a. Level of Consciousness Alert; keenly responsive -1b. LOC Questions Answers BOTH questions correctly. -1c. LOC Commands Performs both tasks correctly . -2. Best Gaze Partial gaze palsy; -3. Visual Partial hemianopia -4. Facial Palsy Normal symmetrical movements -5a. Left Arm No drift; arm holds 90 (or 45 ) degrees for full 10 seconds -5b. Right Arm No drift; arm holds 90 (or 45 ) degrees for full 10 seconds -6a. Left Leg No drift; leg holds 30-degree position for full 5 seconds -6b. Right Leg No drift; leg holds 30-degree position for full 5 seconds -7. Limb Ataxia Present in 1 limb -8. Sensory Mild-to- moderate sensory loss; -9. Best Language Mild-to- moderate aphasia; -10. Dysarthria Mild-to- moderate dysarthria; -11. Extinction and Inattention No abnormality -Total 6 Query Text:A score of 0 is normal or asymptomatic. Total possible score is 42 . ED: Notify Physician for NIHSS increase by > / = 3 points. Inpatient: RN or Physician to activate a stroke alert for NIHSS increase of > / = 3 points. Coma Scale [Assess] -Eye Opening Spontaneous -Motor Obeys Commands -Verbal Oriented [Total] -Coma Scale Total 15 NIHSS 1a. Level of Consciousness: Alert; keenly responsive 1b. LOC Questions: Answers BOTH questions correctly. 1c. LOC Commands: Performs both tasks correctly. 2. Best Gaze: Partial gaze palsy; 3. Visual: No visual loss 4. Facial Palsy: Normal symmetrical movements 5a. Left Arm: No drift; arm holds 90 (or 45) degrees for full 10 seconds 5b. Right Arm: No drift; arm holds 90 (or 45) degrees for full 10 seconds 6a. Left Leg: No drift; leg holds 30-degree position for full 5 seconds 6b. Right Leg: No drift; leg holds 30-degree position for full 5 seconds 7. Limb Ataxia: Absent 8. Sensory: Normal; no sensory loss 9. Best Language: No aphasia; normal 10. Dysarthria: Severe dysarthria; 11. Extinction and Inattention: No abnormality Total: 3 Physical Exam Narrative Apparently compelte left 3rd nerve palsy on exam Lab / Micro Data 10/16/24 05:51 10/16/24 05:51 Labs: Laboratory Results - last 24 hr 10/15/24 13:43: WBC 6.6, RBC 5.03, Hgb 16.2, Hct 47.7, MCV 94.8 H, MCH 32.2 H, MCHC 34.0, RDW Std Deviation 45.2 H, RDW Coeff of Jerry 13.0, Plt Count 279, MPV 9.8, Immature Gran % (Auto) 0.200, Neut % (Auto) 62.5, Lymph % (Auto) 19.2, Whiteside % (Auto) 15.4 H, Eos % (Auto) 2.1, Baso % (Auto) 0.6, Absolute Neuts (auto) 4.1, Absolute Lymphs (auto) 1.26, Nucleated RBC % 0, PT 20.7 H, INR 1.8, APTT 31.5, Sodium 139, Potassium 4.2, Chloride 108 H, Carbon Dioxide 28.0, Anion Gap 4 L, BUN 16, Creatinine 0.89, Estim Creat Clear Calc 71.72, Est GFR (MDRD) Af Amer 107, Est GFR (MDRD) Non-Af 88, BUN/Creatinine Ratio 18.0, Glucose 90, Hemoglobin A1c 5.5, Calcium 9.3, Troponin I High Sens 8 10/16/24 05:51: WBC 7.9, RBC 4.99, Hgb 16.0, Hct 46.3, MCV 92.8, MCH 32.1 H, MCHC 34.6, RDW Std Deviation 43.4, RDW Coeff of Jerry 12.7, Plt Count 249, MPV 9.6, Immature Gran % (Auto) 0.300, Neut % (Auto) 69.9, Lymph % (Auto) 13.4 L, Whiteside % (Auto) 14.1 H, Eos % (Auto) 1.7, Baso % (Auto) 0.6, Absolute Neuts (auto) 5.5, Absolute Lymphs (auto) 1.05, Nucleated RBC % 0, Sodium 139, Potassium 3.9, Chloride 107, Carbon Dioxide 25.0, Anion Gap 8, BUN 12, Creatinine 0.71, Estim Creat Clear Calc 73.91, Est GFR (MDRD) Af Amer 138, Est GFR (MDRD) Non-Af 114, BUN/Creatinine Ratio 16.8, Glucose 111 H, Calcium 9.5, Phosphorus 3.1, Magnesium 2.1, Total Bilirubin 0.80, AST 22, ALT 19, Alkaline Phosphatase 83, Total Protein 7.6, Albumin 3.9, Globulin 3.7, Albumin/Globulin Ratio 1.1, Triglycerides 120, Cholesterol 188, LDL Cholesterol 110, VLDL Cholesterol 24, HDL Cholesterol 54 Imaging Radiology Impression Brain CT 10/15/24 13:45 IMPRESSION: Chronic involutional changes of the brain. Sinusitis. N.B. : The above Results were Read Back by iNxon Morelos MD to Dr Kevin DO, and understanding confirmed on 10/15/2024 13:57:51 (ET). Electronically Signed: Nixon Morelos MD at 13:59 EST , ADDENDUM: 10/15/24 8995 IMPRESSION: Chronic involutional changes of the brain. Sinusitis. N.B. : The above Results were Read Back by Nixon Morelos MD to Dr Kevin DO, and understanding confirmed on 10/15/2024 13:57:51 (ET). Electronically Signed: Nixon Morelos MD at 13:59 EST , Head/Neck CTA 10/15/24 13:45 IMPRESSION: Atherosclerotic plaque anteriorly in both right and left internal carotid arteries without significant stenosis. N.B. : The above Results were Read Back by Nixon Morelos MD to Dr Kevin DO, and understanding confirmed on 10/15/2024 14:05:33 (ET). Electronically Signed: Nixon Morelos MD at 14:06 EST , ADDENDUM: 10/15/24 1413 IMPRESSION: Atherosclerotic plaque anteriorly in both right and left internal carotid arteries without significant stenosis. N.B. : The above Results were Read Back by Nixon Morelos MD to Dr Kevin DO, and understanding confirmed on 10/15/2024 14:05:33 (ET). Electronically Signed: Nixon Morelos MD at 14:06 EST , Chest X-Ray 10/15/24 14:31 IMPRESSION: Status post CABG. Prominence of the central pulmonary arteries. Electronically Signed: Nixon Morelos MD at 14:49 EST , Brain MRI 10/15/24 15:16 IMPRESSION: Involutional changes of the brain, as described above. Electronically Signed: Boom Frias MD at 18:19 EST , Active Medications Active Medications Active Medications: Current Medications Generic Name Dose Route Start Last Admin Trade Name Freq PRN Reason Stop Dose Admin Acetaminophen 650 mg 10/15/24 15:40 10/16/24 05:51 Acetaminophen 325 Mg Tablet PO 650 mg Q4H PRN PRN Administration Pain 1-10 Or Fever>99.6 Ascorbic Acid 500 mg 10/16/24 10:00 10/16/24 10:04 Ascorbic Acid 500 Mg Tablet PO 500 mg DAILY ANGEL Administration Atorvastatin Calcium 80 mg 10/15/24 22:00 10/15/24 22:12 Atorvastatin Calcium 80 Mg Tablet PO 80 mg QHS ANGEL Administration Enoxaparin Sodium 40 mg 10/16/24 10:00 10/16/24 10:04 Enoxaparin 40 Mg/0.4 Ml Syringe SC 40 mg DAILY ANGEL Administration Hydralazine HCl 5 mg 10/15/24 15:40 Hydralazine 20 Mg/Ml Vial IV 10/16/24 15:40 Q30M PRN maintain BP parameters with HR <60 Sodium Chloride 500 mls @ 15 mls/hr 10/15/24 15:42 IV .[id number] PRN Saline Flush Sodium Chloride 500 mls @ 15 mls/hr 10/15/24 15:42 IV .[id number] PRN Additional IVPB Infusion Labetalol HCl 10 - 20 mg 10/15/24 15:40 Labetalol (Prefilled) 20 Mg/4 Ml Vial IV 10/16/24 15:40 Q10M PRN PRN maintain BP parameters with HR >/=60 Levothyroxine Sodium 50 mcg 10/16/24 06:00 10/16/24 05:51 Levothyroxine 50 Mcg Tablet PO 50 mcg DAILY@0600 ANGEL Administration Nutritional Formula (Lactose Free) 120 ml 10/15/24 18:00 10/16/24 13:04 Ensure Plus High Protein 120 Ml Liquid PO 120 ml 4X/DAY ANGEL Administration Ondansetron HCl 4 mg 10/15/24 15:40 Ondansetron 4 Mg/2 Ml Vial IV Q8H PRN PRN NAUSEA/VOMITING Pantoprazole Sodium 20 mg 10/15/24 22:00 10/16/24 10:04 Pantoprazole Sodium 20 Mg Tablet PO 20 mg Q12 ANGEL Administration Senna/Docusate Sodium 2 tablet 10/15/24 15:40 Senna/Docusate Sodium 1 Tablet PO BID PRN PRN Constipation Sodium Chloride 10 - 40 ml 10/15/24 15:42 10/15/24 22:14 0.9% Saline Lock 10 Ml Syringe IV 20 ml UD PRN Administration SALINE FLUSH Sotalol HCl 240 mg 10/15/24 22:00 10/16/24 10:04 Sotalol Hydrochloride 80 Mg Tablet PO 240 mg BID ANGEL Administration
[2024-10-16 14:00] VITALS: BP 143/85; PULSE 70; RESP 18; TEMP 36.7; O2SAT 95
--- NOTE | 2024-10-16 14:06 | CASEMGMT ---
Discharge Planning A list of?RU providers including quality and resource use data and consistent with the patient's preferred geographic region, medical needs, and insurance network was created in [facility]Port Guide.? This list was provided to the RN PONCHO. Irene Everett, Discharge Planning Asst.
--- NOTE | 2024-10-16 14:30 | CASEMGMT ---
ALTAGRACIA ISAAC Face to Face with patient for initial transition planning/care coordination assessment. ALTAGRACIA ISAAC introduced self and role at [facility]. Patient sitting in chair, alert and oriented, at bedside. Patient having difficulty speaking, willing to participate in assessment and is able to answer all questions appropriately. Care providers, pharmacy, and demographics verified. Strata:1 PCP: [facility] Specialists: Keyur Thakur, Pastrycook Yue CCZuleika Preferred Pharmacy: [facility] Insurance: [facility] Prescription Benefit: yes Living Will/HPOA: yes, son Jhonatan Loza LNOK: , son Living Arrangements: Patient lives with in a 2 story home with stair lift to the second floor, 2 steps and railing to enter the home. Patient was independent at home. Transportation: self, son DME/HHC: Patient has shower chair, raised toilet, and grab bars at home. No previous HHC or SNF RN PONCHO reviewed therapy recommendations or Acute Rehab at discharge, list provided. Patient and state they would prefer [facility] Acute Rehab. Patient and state they have no further needs or concerns at this time. ALTAGRACIA ISAAC updated SW regarding request for [facility] Rehab. SW had inquired about bed availability earlier, no bed available at this time. ALTAGRACIA ISAAC back in to updated patient and , next preference with [facility]. ALTAGRACIA ISAAC updated discharge materials planning analyst to sent referral. CM to follow for discharge planning needs that may arise. Disposition Plan: [facility] pending acceptance and precert. Krystal ARCOS, RN, CM
--- NOTE | 2024-10-16 15:04 | CASEMGMT ---
Addendum entered by Irene Everett 10/17/24 09:56: [facility]. Requested that precert be started and to send wknd phone/fax numbers. Irene Everett DC Planning Asst. Original Note: Discharge Planning Referral sent via [facility] to [facility]. Irene Everett DC Planning Asst.
--- NOTE | 2024-10-16 16:47 | NURSING ---
Attempted to give po ativan. Patient refuses.
[2024-10-16 17:00] VITALS: BMI 21.6
[2024-10-16] MEDS: 0.9% Saline Lock 10 ML Syringe IV ×2 (17:08→17:51)
[2024-10-16] MEDS: LORazepam 2 MG/ML Syringe 0.5 MG IV (17:08)
--- NOTE | 2024-10-16 17:44 | CT_ITS ---
INDICATION: agitation EXAMINATION: CT BRAIN - CT Head or Brain W/O Contrast Injection TECHNIQUE: Multiple axial images were obtained of the head without intravenous contrast. The protocol utilizes one or more of the following dose reduction techniques: automated exposure control, adjustment of mA and/or kV according to patient size,and/or use of iterative reconstruction technique. IV Contrast dosage and agent: None. RADIATION DOSAGE (If Supplied By Facility): CTDIvol = ( 44.99 ) mGy, DLP = ( 846.73 ) mGycm COMPARISON: October 15, 2024 FINDINGS: BRAIN PARENCHYMA: No intra- or extra-axial hemorrhage. No evidence of acute infarct. No intracranial mass or mass effect. There is preservation of the stone/white matter interface. Posterior fossa structures are unremarkable. CSF SPACES: Appropriate for age. No hydrocephalus. Basal cisterns are patent. CALVARIUM, SKULL BASE, PARANASAL SINUSES AND MASTOID AIR CELLS: There is stable opacification of the right frontal, right ethmoid and right maxillary sinuses consistent with a history of sinusitis. No discrete lytic or blastic abnormalities. ORBITS: Both globes, extraocular muscles, optic nerves and retrobulbar fat appear unremarkable. CT/Brain/Head without Contrast IMPRESSION: Stable examination demonstrating no acute intracranial process. Electronically Signed: Thu Perkins MD at 20:51 EST ,
[2024-10-16] MEDS: LORazepam 2 MG/ML Syringe 1 MG IV ×2 (17:50→20:19)
--- NOTE | 2024-10-16 18:00 | NURSING ---
NIHSS and vitals not completed at this time due to extreme agitation and being combative with staff
[2024-10-16 20:38] VITALS: BP 133/99; PULSE 92; RESP 16; TEMP 37.1; O2SAT 96
--- NOTE | 2024-10-16 23:23 | PCM.HOSP.N ---
Hospitalist Note I was called by [employer] and informed this patient was becoming increasingly restless and agitated in spite of prn Ativan. He could not be treated with IM Vistaril or IM Haldol due to potential adverse drug reaction with Sotalol so after one additional dose of IV Ativan was given his agitation recurred after ~2.5 hours so the decision was made to move him to the ICU where he could be better managed with Precedex drip.
[2024-10-17] VITALS (26 sets, daily range): BP systolic 85–140; BP diastolic 61–106; PULSE 55–84; RESP 12–22; TEMP 35.9–36.5; O2SAT 94–100; BMI 21.6; BMI 22.4
[2024-10-17] MEDS: dexMEDEtomidine 400 MCG in 0.9% Normal Saline (100mL Bag) 96 ML 8.2 MCG CONT INF (00:16)
[2024-10-17 03:51] LABS: International Normalized Ratio 1.3; Prothrombin Time (Protime)PT. 16.1 SECONDS (11.7-14.9)
--- NOTE | 2024-10-17 07:15 | PN.HOSP_ITS ---
Reason for Visit Reason for Visit: Diagnoses Dysarthria and anarthria (10/15/24) Slurred speech (10/15/24) Weakness (10/15/24) Abnormal coagulation profile (10/15/24) Subjective Subjective Was very agitated yesterday despite several doses of lorazaepam. Had to be transferred to ICU and was initiated on a dexmedetomidine gtt. Objective Data Objective Data Vital Signs: Vital Signs Temp Pulse Resp BP Pulse Ox O2 Del Method O2 Flow Rate 35.9 C L 68 13 119/82 H 98 Nasal Cannula 2 10/17/24 04:00 10/17/24 07:00 10/17/24 07:00 10/17/24 07:00 10/17/24 07:00 10/17/24 07:00 10/17/24 07:00 Oxygen Flow Rate (L/min) 2 Oxygen Delivery Method Nasal Cannula Weight: 68 kg Body Mass Index (BMI) 22.4 Intake & Output: Intake and Output for Last 24 Hours 10/15/24 10/16/24 10/17/24 23:59 23:59 23:59 Intake Total 240 / 480 870 / 870 42.63 / 42.63 Output Total 350 / 1000 1250 / 1250 Balance -110 / -520 -380 / -380 42.63 / 42.63 Lab / Micro Data 10/16/24 05:51 10/16/24 05:51 Labs: Laboratory Results - last 24 hr 10/17/24 03:30: PT 16.1 H, INR 1.3 Radiography Diagnostic Testing: Radiology Impression Echocardiogram 10/15/24 15:16 Interpretation Summary The estimated ejection fraction is 55 %. Unable to assess diastolic dysfunction due to arrhythmia. The left atrium is moderately enlarged. The right atrium is moderately enlarged. Severe mitral annular calcification. Mild mitral valve stenosis. Mild (1+) mitral valve insufficiency. Mild (1+) tricuspid valve insufficiency. Mild focal aortic valve calcification. Mild (1+) aortic valve insufficiency. Bubble contrast study negative for right to left interatrial shunt. Ordering Physician: Gloria Mccarthy Referring Physician: RILEY SWARTZ Performed By: Krupa Marquis and Student Brain CT 10/16/24 17:44 IMPRESSION: Stable examination demonstrating no acute intracranial process. Electronically Signed: Thu Perkins MD at 20:51 EST , Physical Exam Const Constitutional Narrative: somnolent. afebrile HEENT head/scalp atraumatic and moist oral mucous membranes Resp normal respiratory effort and no retractions GI normal to inspection, nondistended, normoactive bowel sounds, soft to palpation and non-tender Assessment & Plan Assessment/Plan (1) CVA (cerebral vascular accident): PLAN: Acute CVA * MRI brain negative. Dr. 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 He recommends restarting anticoagulation. Given pt's history of mitral valvular issues, will resume warfarin. Follow up CT was negative. * Echo shows an EF of 55%. Left atrium moderately enlarged, right atrium moderately enlarged. * PT OT ST * Atorvastatin 80mg/d (2) Agitation: PLAN: Severe where he was attempting to hit other. Did not respond to lorazepam. Give his sotalol; haloperidol, quetiapine, etc.; could not be given Transferred to ICU and started on dexmedetomidine gtt Prior to this, he was very tearful Likely a culmination of the CVA, insomnia, anxiety. PLAN: Plan Chronic conditions: * Persistent atrial fibrillation continue Sotalol and warfarin * Hypothyroidism-Continue home levothyroxine * GERD-Continue home PPI * Essential hypertension-Continue home amlodipine * History of splenic thrombus-resume warfarin * History of mitral valve disease-Previous annuloplasty with annular ring-No mechanical mitral valve present-Echocardiogram is pending-Continue outpatient follow-up DVT prophylaxis: Subcu Lovenox daily 40 mg Greater than 55 minutes of which greater than 50% of time discussed with the patient's and son. Discussed with them in great detail about though the MRI was negative and this is most likely a stroke and also reiterated neurology's recommendations. Also discussed about the modalities of the confusion as is likely multifactorial due to myriad events. Anticipate the patient would actually be better, from an anxiety perspective, after he is off the Precedex drip. Also informed him that there is not a clear indication for DOACs and valvular atrial fibrillation. Recommend continue with warfarin for now. They are both in agreement. Disposition: [facility] the [facility] to [facility]hab when medically stable. Charges/Coding Visit Charges Inpatient E&M: 06457 Subs Hosp L3
--- NOTE | 2024-10-17 10:06 | CASEMGMT ---
Social Work Pt has been accepted at [facility]. Precert has been started today. Pt's behaviors will need to be stabilized and precert will need to be obtained prior to discharge. Green sheet on the chart to facilitate weekend discharge if the these two criteria are met. KASHIF Santos
[2024-10-17] MEDS: Enoxaparin 40 MG/0.4 ML Syringe SC (11:06)
--- NOTE | 2024-10-17 12:06 | CASEMGMT ---
Discharge Planning Maykel Davila has obtained auth to admit. Levi placed in chart. SW updated. Irene Everett DC Planning Asst.
[2024-10-17] MEDS: amLODIPine 5 MG Tablet PO (13:35)
[2024-10-17] MEDS: Pantoprazole Sodium 20 MG Tablet PO ×2 (13:35→20:42)
[2024-10-17] MEDS: Sotalol Hydrochloride 80 MG Tablet 240 MG PO ×2 (13:35→20:40)
[2024-10-17] MEDS: Ascorbic Acid 500 MG Tablet PO (13:35)
[2024-10-17] MEDS: Ensure Plus High Protein 120 ML LIQUID PO ×3 (13:48→20:40)
[2024-10-17] MEDS: Atorvastatin Calcium 80 MG Tablet PO (20:42)
[2024-10-18] VITALS (12 sets, daily range): BP systolic 93–148; BP diastolic 64–99; PULSE 65–80; RESP 14–18; TEMP 36–36.3; O2SAT 91–100; BMI 22.8
[2024-10-18] MEDS: Levothyroxine 50 MCG Tablet PO (05:17)
--- NOTE | 2024-10-18 07:10 | PCM.PN.HOSP ---
Reason for Visit Reason for Visit: Diagnoses Cerebral infarction, unspecified (10/15/24) Restlessness and agitation (10/15/24) Dysarthria and anarthria (10/15/24) Slurred speech (10/15/24) Weakness (10/15/24) Abnormal coagulation profile (10/15/24) Subjective Subjective More alert. Still with difficulty speaking. Objective Data Objective Data Vital Signs: Vital Signs Temp Pulse Resp BP Pulse Ox O2 Del Method O2 Flow Rate 36.0 C L 71 17 130/83 H 94 Room Air 2 10/18/24 04:00 10/18/24 07:00 10/18/24 07:00 10/18/24 07:00 10/18/24 07:00 10/18/24 07:00 10/17/24 23:00 Oxygen Flow Rate (L/min) 2 Oxygen Delivery Method Room Air Weight: 69 kg Body Mass Index (BMI) 22.8 Intake & Output: Intake and Output for Last 24 Hours 10/16/24 10/17/24 10/18/24 23:59 23:59 23:59 Intake Total 870 / 870 271.11 / 271.11 Output Total 1250 / 1250 100 / 100 400 / 400 Balance -380 / -380 171.11 / 171.11 -400 / -400 Lab / Micro Data 10/16/24 05:51 10/16/24 05:51 Physical Exam Const alert and no apparent distress HEENT head/scalp atraumatic and moist oral mucous membranes Eyes Eyes Narrative: right eye down and out. ptosis right eyelid. Resp normal respiratory effort, no retractions, no use of accessory muscles and clear to auscultation bilaterally Cardio regular rate, regular rhythm, S1 normal heart sound and S2 normal heart sound GI normal to inspection, nondistended, normoactive bowel sounds, soft to palpation and non-tender Assessment & Plan Assessment/Plan (1) CVA (cerebral vascular accident): PLAN: Acute CVA with left sided weakness and Right cranial nerve palsy. MRI brain negative. Dr. 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 He recommends restarting anticoagulation. Given pt's history of mitral valvular issues, will resume warfarin. Follow up CT was negative. Echo shows an EF of 55%. Left atrium moderately enlarged, right atrium moderately enlarged. PT OT ST Atorvastatin 80mg/d Advised patching left eye when in bed and up in chair and then patching right eye when he is up working with therapy (2) Agitation: PLAN: Resolved. Severe where he was attempting to hit other. Did not respond to lorazepam. Give his sotalol; haloperidol, quetiapine, etc.; could not be given Transferred to ICU and started on dexmedetomidine gtt Prior to this, he was very tearful Likely a culmination of the CVA, insomnia, anxiety. PLAN: Plan Chronic conditions: Persistent atrial fibrillation continue Sotalol and warfarin Hypothyroidism-Continue home levothyroxine GERD-Continue home PPI Essential hypertension-Continue home amlodipine History of splenic thrombus-resume warfarin History of mitral valve disease-Previous annuloplasty with annular ring-No mechanical mitral valve present-Echocardiogram is pending-Continue outpatient follow-up DVT prophylaxis: Subcu Lovenox daily 40 mg Greater than 55 minutes of which greater than 50% of time discussed with the patient's and son. Discussed with them in great detail about though the MRI was negative and this is most likely a stroke and also reiterated neurology's recommendations. Also discussed about the modalities of the confusion as is likely multifactorial due to myriad events. Anticipate the patient would actually be better, from an anxiety perspective, after he is off the Precedex drip. Also informed him that there is not a clear indication for DOACs and valvular atrial fibrillation. Recommend continue with warfarin for now. They are both in agreement. [facility]
[2024-10-18 07:44] LABS: International Normalized Ratio 1.2; Prothrombin Time (Protime)PT. 15.3 SECONDS (11.7-14.9)
[2024-10-18] MEDS: Sotalol Hydrochloride 80 MG Tablet 240 MG PO (08:24)
[2024-10-18] MEDS: Pantoprazole Sodium 20 MG Tablet PO (08:25)
[2024-10-18] MEDS: amLODIPine 5 MG Tablet PO (08:25)
[2024-10-18] MEDS: Ascorbic Acid 500 MG Tablet PO (08:25)
[2024-10-18] MEDS: Enoxaparin 40 MG/0.4 ML Syringe SC (08:26)
--- NOTE | 2024-10-18 09:30 | CASEMGMT ---
Social Work Pt completed PHQ-9 w/SW, scored a 6. Pt showing some signs of depression, that seem directly correlated with his current medical condition. Pt's speaking has been impacted and pt was able to express that this is difficult for him. Support offered. Pt is to be going to rehab today, pt seems in agreement with going to rehab to work on his speech in particular. No further social service needs anticipated at this time. DI Lea
--- NOTE | 2024-10-18 10:04 | DS.PCM_ITS ---
Providers Date of Admission: 10/15/24 Primary Care Physician: Dr. Letitia Wei, DO Consultations 10/15/24 15:40 Consult: Tele-Neurology Routine Consulting Provider: [facility] Reason for Consult: Acute Ischemic Stroke/TIA EMERGENT Consult: No MD Notified: Yes Date Notified: 10/15/24 Time Notified: 16:11 Method of Notification: Answering Service Nursing Unit Staff Notify [facility] of Tele-Neurology Consult: Yes Reason For Visit: SUSPECTED STROKE Diagnosis Discharge Diagnosis (1) CVA (cerebral vascular accident): Status: Acute Code(s): I63.9 - Cerebral infarction, unspecified Plan: Acute CVA with left sided weakness and Right cranial nerve palsy. * MRI brain negative. Dr. 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 He recommends restarting anticoagulation. Given pt's history of mitral valvular issues, will resume warfarin. Follow up CT was negative. * Echo shows an EF of 55%. Left atrium moderately enlarged, right atrium moderately enlarged. * PT OT ST * Atorvastatin 80mg/d * Advised patching left eye when in bed and up in chair and then patching right eye when he is up working with therapy (2) Agitation: Status: Acute Code(s): R45.1 - Restlessness and agitation Plan: Resolved. Severe where he was attempting to hit other. Did not respond to lorazepam. Give his sotalol; haloperidol, quetiapine, etc.; could not be given Transferred to ICU and started on dexmedetomidine gtt Prior to this, he was very tearful Likely a culmination of the CVA, insomnia, anxiety. Plan Chronic conditions: * Persistent atrial fibrillation continue Sotalol and warfarin * Hypothyroidism-Continue home levothyroxine * GERD-Continue home PPI * Essential hypertension-Continue home amlodipine * History of splenic thrombus-resume warfarin * History of mitral valve disease-Previous annuloplasty with annular ring-No mechanical mitral valve present-Echocardiogram is pending-Continue outpatient follow-up DVT prophylaxis: Subcu Lovenox daily 40 mg Greater than 55 minutes of which greater than 50% of time discussed with the patient's and son. Discussed with them in great detail about though the MRI was negative and this is most likely a stroke and also reiterated neurology's recommendations. Also discussed about the modalities of the confusion as is likely multifactorial due to myriad events. Anticipate the patient would actually be better, from an anxiety perspective, after he is off the Precedex drip. Also informed him that there is not a clear indication for DOACs and valvular atrial fibrillation. Recommend continue with warfarin for now. They are both in agreement. [facility] Medications at Discharge Home Medications amlodipine 5 mg tablet (Norvasc) 5 mg PO DAILY 10/15/24 ascorbic acid (vitamin C) 500 mg tablet (Vitamin C) 500 mg PO DAILY 10/15/24 esomeprazole magnesium 20 mg capsule,delayed release (Nexium) 20 mg PO Q12H 10/15/24 levothyroxine 50 mcg tablet (Synthroid) 50 mcg PO DAILY thyroid 10/15/24 sotalol 240 mg tablet (Betapace) 240 mg PO BID 10/15/24 warfarin 5 mg tablet 5 mg PO DAILY blood thinner 10/15/24 atorvastatin 80 mg tablet 80 mg PO QHS #0 tabs 10/18/24 food supplemt, lactose-reduced 0.08 gram-1.5 kcal/mL oral liquid (Ensure Plus High Protein) 120 ml PO 4X/DAY #0 mL 10/18/24 Hospital Course Operations None Procedures 2-D Echocardiogram Summary of Care Provided Minutes Spent on Discharge: 40 Hospital Course: Is a 74-year-old male presented with acute onset of left-sided weakness, dizziness, diplopia. Patient underwent stroke workup as he had left-sided weakness as well as cranial nerve III palsy on his right. His MRI imaging did not show any stroke but clinically, patient had a stroke and combine by the fact that he has known atrial fibrillation on warfarin. Patient was seen by neurology from [facility] who felt the patient did indeed have a brainstem stroke though the MRI did not convincingly show that. Recommendation is continue with his warfarin therapy. Preferably we would like for him to be on apixaban but he unfortunate does have valvular A-fib and would require warfarin for further management. Suspected that his stroke was embolic from his atrial fibrillation whether or not it was from being subtherapeutic or happened irregardless is unclear. Patient's hospitalization was compounded by severe agitation. Patient was inconsolable, being confrontational with his family and staff which according his family is out of the norm for him. Is felt that that was likely multifactorial as patient is been very emotionally labile since his stroke And but also compounded by the stroke itself and that diagnosis and the long-term implications of such. Along with probably insomnia as patient had not been sleeping well before. He did require being placed on dexmedetomidine drip. That was discontinued on the and today patient is much better. He is still having profound dysarthria and still does have the ptosis on his right eye with his right eye being down and out. To help strengthen his eye, patient will be advised to patch his left eye when he is in bed and sitting in a chair, however, with activity would recommend him patching the right eye to prevent diplopia and having his left eye being able to navigate his positions and so forth. Patient will be discharged to rehab in stable condition. Weight / BMI Weight Weight: 69 kg Body Mass Index (BMI) 22.8 ABG / Lab / Microbiology Data 10/16/24 05:51 10/16/24 05:51 Laboratory: Laboratory Results - last 24 hr 10/18/24 07:20: PT 15.3 H, INR 1.2 D/C Instructions Discharge Diet: Low fat / Low cholesterol DC O2, CPAP, BIPAP Needs Additional Home O2 Discharge instructions: No DC home with Oxygen: No Meaningful Use Info Meaningful Use Meaningful Use Diagnoses (Choose all that apply): Ischemic CVA CVA Therapy Assessed for PT,OT and/or ST?: Yes Ischemic Stroke Antithrombotic order at d/c?: No Reason antithrombotic not ordered: Treatment not Indicated Dx of Atrial fib/flutter?: Yes Anticoagulant at discharge?: Yes Statin Dosing Therapy Reference: STATIN DOSE THERAPY REFERENCE: * Patients > 75 years receive moderate or high dose statin therapy. * Patients 75 years or YOUNGER should receive HIGH intensity statin dose unless contraindicated. You will be required to document reason for non-treatment if statin daily dose does not meet guidelines. HIGH DOSE STATIN THERAPY DAILY Atorvastatin > than or = to 40 mg Rosuvastatin > than or = to 20 mg Amlodipine + Atorvastatin > than or = to 2.5/40 mg Ezetimibe + Simvastatin 10/80 mg Simvastatin 80mg Statins at discharge?: Yes Primary Dx Acute Ischemic CVA?: Yes IV thrombolytic ordered during stay?: No Reason IV thrombolytic not ordered: Treatment not Indicated Discharge Plan Admission Admit Date/Time: 10/15/24 15:09 Primary Reason for Your Visit: Stroke Attending Provider: Lj Hansen Primary Care Provider: Letitia Wei Consulting Providers: Isaiah Hobbs; Rupesh Florian; Caryn Batista; Dixie Jones; Analy Fernandez; Oliver Camargo; Mandy Castillo; Joaquin Duarte; Adonay Pacheco; Lionel Wynn; Soha Mantilla; Hesham Watts; Marcy Corado; Bashir Lan; Krish Vargas; Fco Wood; Rosalie Hernandez; Jorgito George; Diana Mccarthy; Lorena Hughes; Gloria Mccarthy Instructions Additional Instructions / Restrictions: Follow up with neurology. [facility] [phone]. [facility] [place] [phone]. [facility] [place] [phone]. [facility] [phone]. [facility] [place] [phone] Until diplopia resolves, I recommend wearing a patch of your left eye when you are at rest, such as in bed in a chair. But with activity, such as working with physical therapy, recommending patching your right eye. Discharge Orders/Prescriptions Prescriptions: New atorvastatin 80 mg Tablet 80 mg PO QHS Qty: 0 0RF Ensure Plus High Protein 0.08 gram-1.5 kcal/mL Liquid 120 ml PO 4X/DAY Qty: 0 0RF Continued warfarin 5 mg tablet 5 mg PO DAILY Patient Comments: takes 1/2 tab tuesdays esomeprazole magnesium [Nexium] 20 mg capsule,delayed release(DR/EC) 20 mg PO Q12H amlodipine [Norvasc] 5 mg tablet 5 mg PO DAILY levothyroxine [Synthroid] 50 mcg tablet 50 mcg PO DAILY sotalol [Betapace] 240 mg tablet 240 mg PO BID ascorbic acid (vitamin C) [Vitamin C] 500 mg tablet 500 mg PO DAILY Referrals / Follow Up: Letitia Wei DO [Primary Care Provider] - Within 2 Weeks Disposition Disposition (needs filled in before D/C Order can be placed): Inpatient Rehab Unit/Facility Charges/Coding Visit Charges Inpatient E&M: 63161 Disch Hosp >30min
--- NOTE | 2024-10-18 12:10 | TREXTCAR_ITS ---
Diet Diet Order/Speech Therapy: 10/15/24 16:06 Diet: Cardiac - Heart Healthy Routine Orders/Code Status Routine Lab Work: INR (sunday, sunday) Code Status: Full Code DC O2, CPAP, BIPAP needs Additional Home O2 Discharge instructions: No Problem/Diagnosis (1) CVA (cerebral vascular accident): Status: Acute Code(s): I63.9 - Cerebral infarction, unspecified Plan: Acute CVA with left sided weakness and Right cranial nerve palsy. * MRI brain negative. Dr. 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 He recommends restarting anticoagulation. Given pt's history of mitral valvular issues, will resume warfarin. Follow up CT was negative. * Echo shows an EF of 55%. Left atrium moderately enlarged, right atrium moderately enlarged. * PT OT ST * Atorvastatin 80mg/d * Advised patching left eye when in bed and up in chair and then patching right eye when he is up working with therapy (2) Agitation: Status: Acute Code(s): R45.1 - Restlessness and agitation Plan: Resolved. Severe where he was attempting to hit other. Did not respond to lorazepam. Give his sotalol; haloperidol, quetiapine, etc.; could not be given Transferred to ICU and started on dexmedetomidine gtt Prior to this, he was very tearful Likely a culmination of the CVA, insomnia, anxiety. Plan Chronic conditions: * Persistent atrial fibrillation continue Sotalol and warfarin * Hypothyroidism-Continue home levothyroxine * GERD-Continue home PPI * Essential hypertension-Continue home amlodipine * History of splenic thrombus-resume warfarin * History of mitral valve disease-Previous annuloplasty with annular ring-No mechanical mitral valve present-Echocardiogram is pending-Continue outpatient follow-up DVT prophylaxis: Subcu Lovenox daily 40 mg Greater than 55 minutes of which greater than 50% of time discussed with the patient's and son. Discussed with them in great detail about though the MRI was negative and this is most likely a stroke and also reiterated neurology's recommendations. Also discussed about the modalities of the confusion as is likely multifactorial due to myriad events. Anticipate the patient would actually be better, from an anxiety perspective, after he is off the Precedex drip. Also informed him that there is not a clear indication for DOACs and valvular atrial fibrillation. Recommend continue with warfarin for now. They are both in agreement. [facility] Allergies/Procedures Done in Hospital Allergies No Known Allergies Allergy (Verified 10/15/24 14:45) Type of Care/Length of Stay Estimated LOS: Convalescent Care Less Than 30 days Type of Care Needed: Acute Rehab Rehab Potential: Fair Prognosis: Good Additional Orders/Day of Discharge Day of Discharge: 10/18/24 Dietary and Speech Recommendations Dietitian Recommendations/Changes: Continue cardiac diet with 120ml ensure plus high protein 4x daily with medpass. Will adjust ONS, as needed. Will monitor weight, as available. Reviewed and approved by Juhi Shi, MIKIE, LD. Discharge Plan Admission Admit Date/Time: 10/15/24 15:09 Primary Reason for Your Visit: Stroke Attending Provider: Lj Hansen Primary Care Provider: Letitia Wei Consulting Providers: Isaiah Hobbs; Rupesh Florian; Caryn Batista; Dixie Jones; Analy Fernandez; Oliver Camargo; Mandy Castillo; Joaquin Duarte; Adonay Pacheco; Lionel Wynn; Soha Mantilla; Hesham Watts; Marcy Corado; Bashir Lan; Krish Vargas; Fco Wood; Rosalie Hernandez; Jorgito George; Diana Mccarthy; Lorena Hughes; Gloria Mccarthy Instructions Additional Instructions / Restrictions: Follow up with neurology. [facility] [place] [facility] [phone]. [facility] [place] [phone]. [facility] [place] [phone]. [facility] [phone]. [facility] [place] [phone] Until diplopia resolves, I recommend wearing a patch of your left eye when you are at rest, such as in bed in a chair. But with activity, such as working with physical therapy, recommending patching your right eye. Discharge Orders/Prescriptions Prescriptions: New atorvastatin 80 mg Tablet 80 mg PO QHS Qty: 0 0RF Ensure Plus High Protein 0.08 gram-1.5 kcal/mL Liquid 120 ml PO 4X/DAY Qty: 0 0RF Continued warfarin 5 mg tablet 5 mg PO DAILY Patient Comments: takes 1/2 tab tues esomeprazole magnesium [Nexium] 20 mg capsule,delayed release(DR/EC) 20 mg PO Q12H amlodipine [Norvasc] 5 mg tablet 5 mg PO DAILY levothyroxine [Synthroid] 50 mcg tablet 50 mcg PO DAILY sotalol [Betapace] 240 mg tablet 240 mg PO BID ascorbic acid (vitamin C) [Vitamin C] 500 mg tablet 500 mg PO DAILY Referrals / Follow Up: Letitia Wei DO [Primary Care Provider] - Within 2 Weeks Disposition Disposition (needs filled in before D/C Order can be placed): Inpatient Rehab Unit/Facility
== END 2024-10-18 13:00 | DRG 65 ==
LOC: ED 15:11 → PCU 15:29 → ICU 10-16 23:30
PROVIDERS: Admitting Provider Internal Medicine; Emergency Provider Emergency Medicine; PCP Internal Medicine
DX: I63.89 Other cerebral infarction (principal); I48.19 Other persistent atrial fibrillation; E03.9 Hypothyroidism, unspecified; I10 Essential (primary) hypertension; K21.9 Gastro-esophageal reflux disease without esophagitis; R79.1 Abnormal coagulation profile; R29.705 NIHSS score 5; Z79.899 Other long term (current) drug therapy; Z79.01 Long term (current) use of anticoagulants
CPT/HCPCS: 36415; 70450; 70496; 70498; 70551; 71045; 80048; 80053; 80061; 83036; 83735; 84100; 84484; 85025; 85610; 85730; 92522; 93005; 93306; 94668; 94762; 97116; 97163; 97166; 97530; 97802; 99285; Q9967; A4216